=== PATIENT | female | born 1950 | race Two or more races ===

== ENCOUNTER 2019-11-15 22:05 | Inpatient (IN) | payer MEDICARE, MEDICAID ==
[~2019-11-15] VITALS: Ht 162.6 cm; Wt 61.7 kg
[2019-11-15 22:07] VITALS: BP 134/88
[2019-11-15] MEDS ORDERED: Ketorolac 30mg Inj IM ONE (22:45)
--- NOTE | 2019-11-15 23:46 | Diagnostic Imaging Report ---
EXAM: XR Lumbosacral Spine, 2 or 3 Views CLINICAL HISTORY: PAIN TECHNIQUE: Frontal and lateral views of the lumbar spine and sacrum. COMPARISON: No relevant prior studies available. FINDINGS: Limitations: Evaluation in the absence of comparison studies is limited. Vertebrae: Bony structures somewhat difficult to visualize due to overlying structures, osteopenia, and likely patient body habitus. Bilateral posterior probable L4, L5, and S2 stabilization hardware with anterior L5-S1 stabilization and interbody spacer. T12 superior endplate compression fracture of uncertain chronicity, correlate with exam. As this could be acute. Normal alignment. Sacrum/coccyx: Unremarkable as visualized. No acute fracture. Disc spaces: Advanced L2-L3 degenerative disc findings. Soft tissues: Unremarkable. Other findings: Recommend correlation with prior studies to evaluate for stability over time. IMPRESSION: 1. Evaluation in the absence of comparison studies is limited. 2. Bony structures somewhat difficult to visualize due to overlying structures, osteopenia, and likely patient body habitus. 3. Bilateral posterior probable L4, L5, and S2 stabilization hardware with anterior L5-S1 stabilization and interbody spacer. 4. Advanced L2-L3 degenerative disc findings. 5. T12 superior endplate compression fracture of uncertain chronicity, correlate with exam. As this could be acute. 6. Recommend correlation with prior studies to evaluate for stability over time.
[2019-11-16] VITALS (7 sets, daily range): BP systolic 107–139; BP diastolic 48–86
[2019-11-16] MEDS ORDERED: LIDODERM700 M1 TOPIC (00:26)
[2019-11-16] MEDS ORDERED: TYLENOL EXTRA500 MG ORAL (00:26)
[2019-11-16] MEDS ORDERED: Cyclobenzaprine 10mg Tab ORAL ONE (01:00)
--- NOTE | 2019-11-16 01:08 | Emergency Room Report ---
History of Present Illness General Chief Complaint: Back Pain-No Injury Source: Patient Present Illness HPI 69-year-old female presents for back pain. Brought in by EMS from home. States that she has history of slipped disks and sciatica. States that she has had chronic issues with back pain. Has been told that she needs surgery. Is scheduled to see her back surgeon in 2 days. Is taking her medications at home without significant relief. 8 out of 10, dull, radiating down the left leg. Denies any bowel or bladder incontinence. No other aggravating relieving factors. 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: No Patient History Past Medical History: HTN Past Surgical History: none Pertinent Family History: none Social History: Denies: smoking, alcohol use, drug use Last Menstrual Period: n/a Now: No Immunizations: UTD Reviewed Nursing Documentation: PMH: Agreed; PSxH: Agreed Nursing Documentation-PMH Past Medical History: No History, Except For Hx Hypertension: Yes - hypertension Review of Systems All Other Systems: negative except mentioned in HPI Physical Exam Vital Signs Date Time Temp Pulse Resp B/P (MAP) Pulse Ox O2 Delivery O2 Flow Rate FiO2 11/15/19 22:07 97.9 88 18 134/88 (103) 99 Room Air Sp02 EP Interpretation: reviewed, normal General Appearance: no apparent distress, alert, GCS 15, non-toxic Head: normocephalic, atraumatic Eyes: bilateral eye normal inspection, bilateral eye PERRL ENT: hearing grossly normal, normal pharynx, no angioedema, normal voice Neck: full range of motion, supple/symm/no masses Respiratory: chest non-tender, lungs clear, normal breath sounds, speaking full sentences Cardiovascular #1: regular rate, rhythm, no edema Cardiovascular #2: 2+ carotid (R), 2+ carotid (L), 2+ radial (R), 2+ radial (L) , 2+ dorsalis pedis (R), 2+ dorsalis pedis (L) Gastrointestinal: normal bowel sounds, non tender, soft, non-distended, no guarding, no rebound Rectal: deferred Genitourinary: normal inspection, no CVA tenderness, vertebral tenderness Musculoskeletal: back normal, normal range of motion, gait/station normal Neurologic: alert, motor strength/tone normal, oriented x3, sensory intact, responsive, speech normal Psychiatric: judgement/insight normal, memory normal, mood/affect normal, no suicidal/homicidal ideation Reflexes: 3+ bicep (R), 3+ bicep (L), 3+ tricep (R), 3+ tricep (L), 3+ knee (R) , 3+ knee (L) Skin: no rash Lymphatic: no adenopathy Medical Decision Making Diagnostic Impression: Primary Impression: Intractable low back pain ER Course Hospital Course 69-year-old female presents to ED with back pain Differential diagnoses include: fracture, muscle strain, pyelonephritis, kidney stone, Clinical course Patient placed on stretcher. monitoring specialist. After initial history and physical I ordered pain meds, xrays Xray shows hardware intact in lumbar region. ? T12 fx. Patient given multiple rounds of medication but still has pain difficulty walking. History of sciatica and bulging disc. Labs - no leukocytosis, Hb/Hct stable. electrolytes ok. Case discussed with Dr. Bronson and he agreed to accept the patient to his service for further care and support I feel this is a highly complex case requiring extensive working including EKG/ Rhythm strip, Xray/CT/US, Blood/urine lab work, repeat exams while in ED, and administration of strong opiates/narcotics for pain control, admission to hospital or close patient follow up. Diagnosis -intractable back pain Patient admitted to floor in serious condition Laboratory Tests Test 11/16/19 03:23 White Blood Count 6.0 K/UL (4.8-10.8) Red Blood Count 4.17 M/UL (4.20-5.40) L Hemoglobin 13.6 G/DL (12.0-16.0) Hematocrit 40.9 % (37.0-47.0) Mean Corpuscular Volume 98 FL (80-99) Mean Corpuscular Hemoglobin 32.7 PG (27.0-31.0) H Mean Corpuscular Hemoglobin Concent 33.3 G/DL (32.0-36.0) Red Cell Distribution Width 12.4 % (11.6-14.8) Platelet Count 201 K/UL (150-450) Mean Platelet Volume 9.9 FL (6.5-10.1) Neutrophils (%) (Auto) 43.3 % (45.0-75.0) L Lymphocytes (%) (Auto) 46.0 % (20.0-45.0) H Monocytes (%) (Auto) 6.2 % (1.0-10.0) Eosinophils (%) (Auto) 3.3 % (0.0-3.0) H Basophils (%) (Auto) 1.3 % (0.0-2.0) Sodium Level 144 MMOL/L (136-145) Potassium Level 3.4 MMOL/L (3.5-5.1) L Chloride Level 106 MMOL/L (98-107) Carbon Dioxide Level 32 MMOL/L (21-32) Anion Gap 6 mmol/L (5-15) Blood Urea Nitrogen 15 mg/dL (7-18) Creatinine 0.8 MG/DL (0.55-1.30) Estimat Glomerular Filtration Rate > 60 mL/min (>60) Glucose Level 95 MG/DL (74-106) Calcium Level 9.3 MG/DL (8.5-10.1) Total Bilirubin 0.3 MG/DL (0.2-1.0) Aspartate Amino Transf (AST/SGOT) 19 U/L (15-37) Alanine Aminotransferase (ALT/SGPT) 22 U/L (12-78) Alkaline Phosphatase 59 U/L (46-116) Total Protein 6.9 G/DL (6.4-8.2) Albumin 3.8 G/DL (3.4-5.0) Globulin 3.1 g/dL Albumin/Globulin Ratio 1.2 (1.0-2.7) Other X-Ray Diagnostic Results Other X-Ray Diagnostic Results : X-Ray ordered: L spine # of Views/Limited Vs Complete: 3 View Indication: Pain EP Interpretation: Yes Interpretation: no dislocation, no soft tissue swelling, other - hardware in lumbar region intact. wedge compression T12 undetermined acuity Impression: No acute disease Electronically Signed by: Electronically signed by Ugo Morales MD Last Vital Signs Date Time Temp Pulse Resp B/P (MAP) Pulse Ox O2 Delivery O2 Flow Rate FiO2 11/15/19 23:40 97.9 11/15/19 22:07 88 18 134/88 (103) 99 Room Air Status: improved Disposition: HOME, SELF-CARE Condition: Stable Scripts Acetaminophen* (TYLENOL EXTRA STRENGTH*) 500 Mg Tablet 500 MG ORAL Q8H PRN for Prn Headache/Temp > 101, #30 TAB 0 Refills Prov: Ugo Morales MD 11/16/19 Lidocaine Patch* (Lidoderm Patch*) 1 Each Adh..patch 1 PATCH TOPIC DAILY, #7 PATCH 0 Refills Patch(es) may remain in place for up to 12 hours in any 24-hour period. Prov: Ugo Morales MD 11/16/19 Referrals: NON PHYSICIAN (PCP) Patient Instructions: Ugo Fernandez MD Nov 16, 2019 01:08
[2019-11-16] MEDS ORDERED: Morphine Sulfate 4mg/ml Inj (IV USE ONLY) IVP ONE (02:45)
[2019-11-16 03:32] LABS: BASOPHILS % (AUTO) 1.3 % (0.0-2.0); EOSINOPHILS % (AUTO) 3.3 % (0.0-3.0); HEMATOCRIT 40.9 % (37.0-47.0); HEMOGLOBIN 13.6 G/DL (12.0-16.0); MEAN CORPUSCULAR VOLUME 98 FL (80-99); MONOCYTES % (AUTO) 6.2 % (1.0-10.0); NEUTROPHILS % (AUTO) 43.3 % (45.0-75.0); PLATELET COUNT 201 K/UL (150-450); RED BLOOD COUNT 4.17 M/UL (4.20-5.40); RED CELL DISTRIBUTION WIDTH 12.4 % (11.6-14.8)
[2019-11-16 03:42] LABS: ANION GAP 6 mmol/L (5-15); BLOOD UREA NITROGEN 15 mg/dL (7-18); CALCIUM 9.3 MG/DL (8.5-10.1); CARBON DIOXIDE 32 MMOL/L (21-32); CHLORIDE 106 MMOL/L (98-107); CREATININE 0.8 MG/DL (0.55-1.30); POTASSIUM 3.4 MMOL/L (3.5-5.1); SODIUM 144 MMOL/L (136-145)
[2019-11-16 03:46] LABS: ALANINE AMINOTRANSFERASE 22 U/L (12-78); ALBUMIN 3.8 G/DL (3.4-5.0); ALBUMIN/GLOBULIN RATIO 1.2 (1.0-2.7); ALKALINE PHOSPHATASE 59 U/L (46-116); ASPARTATE AMINO TRANSFERASE 19 U/L (15-37); BILIRUBIN,TOTAL 0.3 MG/DL (0.2-1.0)
[2019-11-16] MEDS ORDERED: DEPAKOTE250 MG PO (04:43)
[2019-11-16] MEDS ORDERED: LOTENSIN20 MG ORAL (04:43)
[2019-11-16] MEDS ORDERED: GABAPENTIN400 MG ORAL ×2 (04:43→06:28)
[2019-11-16] MEDS ORDERED: METHOCARBAMOL750 MG ORAL (04:43)
[2019-11-16] MEDS ORDERED: DICLOFEN 3%-HYA30 GM TP (04:44)
[2019-11-16] MEDS ORDERED: SYSTANE NIGHTT3.5 GM OP (04:44)
[2019-11-16] MEDS ORDERED: HYDROCHLOROTHIA25 MG ORAL (04:49)
[2019-11-16] MEDS ORDERED: Morphine Sulfate 2mg/ml Inj(IV/IM USE ONLY) IVP PRN (06:15)
[2019-11-16] MEDS ORDERED: OMEPRAZOLE20 M2 ORAL ×3 (06:24→07:34)
[2019-11-16] MEDS ORDERED: IBUPROFEN600 M1 ORAL (06:28)
[2019-11-16] MEDS ORDERED: DIVALPROEX SOD250 MG PO (06:28)
[2019-11-16] MEDS ORDERED: HYDROXYCHLOROQ200 M1 PO ×3 (06:28→07:34)
[2019-11-16] MEDS ORDERED: Acetaminophen 500mg (ES) tab ORAL PRN (06:45)
[2019-11-16] MEDS ORDERED: Methocarbamol 750mg tab ORAL PRN (06:45)
[2019-11-16] MEDS ORDERED: DIVALPROEX SOD500 MG PO ×2 (07:00→07:34)
[2019-11-16] MEDS ORDERED: GABAPENTIN100 MG ORAL ×2 (07:02→07:34)
[2019-11-16] MEDS ORDERED: Diclofenac 1% Gel 100gm TOPIC SCH (09:00)
[2019-11-16] MEDS: Diclofenac 1% Gel 100gm TOPIC SCH ×4 (10:41→20:37)
[2019-11-16] MEDS: Morphine Sulfate 4mg/ml Inj (IV USE ONLY) IVP PRN ×3 (11:36→21:41)
[2019-11-16] MEDS: Depakote 500mg tab ORAL SCH (16:41)
--- NOTE | 2019-11-16 17:52 | Consultation ---
History of Present Illness General Date patient seen: Nov 16, 2019 Chief Complaint: Present Illness Allergies: Coded Allergies: No Known Allergies (Unverified , 11/15/19) Medication History Scheduled Benazepril Hcl* (Lotensin*), 20 MG ORAL DAILY, (Reported) Divalproex Sodium (Divalproex Sodium), 1,000 MG PO BEFORE DINNER, (Reported) Gabapentin* (Gabapentin*), 300 MG ORAL THREE TIMES A DAY, (Reported) Hydroxychloroquine Sulfate (Hydroxychloroquine Sulfate), 200 MG PO DAILY, ( Reported) Omeprazole (Omeprazole), 20 MG ORAL DAILY, (Reported) Scheduled PRN Acetaminophen* (Tylenol Extra Strength*), 500 MG ORAL Q8H PRN for Prn Headache/ Temp > 101 Ibuprofen* (Motrin*), 600 MG ORAL Q6H PRN for For Pain, (Reported) Methocarbamol* (Methocarbamol*), 750 MG ORAL THREE TIMES A DAY PRN for For Pain, (Reported) Discontinued Medications Diclofenac/Hyaluronate/Niacin (Diclofen 3%-Hyaluron 2%-Niac4%), 30 GM TP, ( Reported) Discontinued Reason: MD discontinued med Divalproex Sodium (Divalproex Sodium), 250 MG PO BEFORE DINNER PRN for For Anxiety, (Reported) Discontinued Reason: MD discontinued med Divalproex Sodium (Divalproex Sodium), 500 MG PO DAILY PRN for Agitation, ( Reported) Discontinued Reason: MD discontinued med Divalproex Sodium* (Depakote*), 500 MG PO DAILY, (Reported) Discontinued Reason: MD discontinued med Gabapentin* (Gabapentin*), 60 MG ORAL TWICE A DAY, (Reported) Discontinued Reason: Medication dose changed Gabapentin* (Gabapentin*), 300 MG ORAL THREE TIMES A DAY PRN for Muscle Spasm, ( Reported) Discontinued Reason: Medication dose changed Gabapentin* (Gabapentin*), 300 MG ORAL THREE TIMES A DAY PRN for Muscle Spasm, ( Reported) Discontinued Reason: MD discontinued med Hydrochlorothiazide* (Hydrochlorothiazide*), 20 MG ORAL DAILY, (Reported) Discontinued Reason: Pt stopped taking med Hydroxychloroquine Sulfate (Hydroxychloroquine Sulfate), 200 MG PO BID PRN for For Pain, (Reported) Discontinued Reason: MD discontinued med Hydroxychloroquine Sulfate (Hydroxychloroquine Sulfate), 200 MG PO BID PRN for For Pain, (Reported) Discontinued Reason: MD discontinued med Lidocaine Patch* (Lidoderm Patch*), 1 PATCH TOPIC DAILY Discontinued Reason: Pt stopped taking med Mineral Oil/Petrolatum,White (Systane Nighttime Eye Oint), 3.5 GM OP, (Reported) Discontinued Reason: Pt stopped taking med Omeprazole (Omeprazole), 20 MG ORAL DAILY PRN for Abdominal cramps, (Reported) Discontinued Reason: Therapy completed Omeprazole (Omeprazole), 20 MG ORAL DAILY PRN for Abdominal cramps, (Reported) Discontinued Reason: MD discontinued med Patient History Healthcare decision maker Resuscitation status Advanced Directive on File Physical Exam Last 24 Hour Vital Signs Date Time Temp Pulse Resp B/P (MAP) Pulse Ox O2 Delivery O2 Flow Rate FiO2 11/16/19 12:00 98.2 64 19 138/74 (95) 98 11/16/19 09:00 Room Air 11/16/19 08:00 96.9 61 18 129/56 (80) 98 11/16/19 04:54 Room Air 11/16/19 04:45 97.9 85 16 136/84 99 Room Air 11/16/19 04:04 97.9 87 16 139/86 99 Room Air 11/16/19 03:18 97.9 11/16/19 02:10 97.9 82 16 132/81 99 Room Air 11/16/19 00:12 97.9 82 16 136/79 99 Room Air 11/15/19 23:40 97.9 11/15/19 22:07 97.9 88 18 134/88 99 Room Air 11/15/19 22:07 97.9 88 18 134/88 (103) 99 Room Air Intake and Output 11/15/19 11/16/19 19:00 07:00 Intake Total 100 ml Balance 100 ml Intake Oral 100 ml Laboratory Tests Test 11/16/19 03:23 White Blood Count 6.0 K/UL (4.8-10.8) Red Blood Count 4.17 M/UL (4.20-5.40) L Hemoglobin 13.6 G/DL (12.0-16.0) Hematocrit 40.9 % (37.0-47.0) Mean Corpuscular Volume 98 FL (80-99) Mean Corpuscular Hemoglobin 32.7 PG (27.0-31.0) H Mean Corpuscular Hemoglobin Concent 33.3 G/DL (32.0-36.0) Red Cell Distribution Width 12.4 % (11.6-14.8) Platelet Count 201 K/UL (150-450) Mean Platelet Volume 9.9 FL (6.5-10.1) Neutrophils (%) (Auto) 43.3 % (45.0-75.0) L Lymphocytes (%) (Auto) 46.0 % (20.0-45.0) H Monocytes (%) (Auto) 6.2 % (1.0-10.0) Eosinophils (%) (Auto) 3.3 % (0.0-3.0) H Basophils (%) (Auto) 1.3 % (0.0-2.0) Sodium Level 144 MMOL/L (136-145) Potassium Level 3.4 MMOL/L (3.5-5.1) L Chloride Level 106 MMOL/L (98-107) Carbon Dioxide Level 32 MMOL/L (21-32) Anion Gap 6 mmol/L (5-15) Blood Urea Nitrogen 15 mg/dL (7-18) Creatinine 0.8 MG/DL (0.55-1.30) Estimat Glomerular Filtration Rate > 60 mL/min (>60) Glucose Level 95 MG/DL (74-106) Calcium Level 9.3 MG/DL (8.5-10.1) Total Bilirubin 0.3 MG/DL (0.2-1.0) Aspartate Amino Transf (AST/SGOT) 19 U/L (15-37) Alanine Aminotransferase (ALT/SGPT) 22 U/L (12-78) Alkaline Phosphatase 59 U/L (46-116) Total Protein 6.9 G/DL (6.4-8.2) Albumin 3.8 G/DL (3.4-5.0) Globulin 3.1 g/dL Albumin/Globulin Ratio 1.2 (1.0-2.7) Height (Feet): 5 Height (Inches): 4.00 Weight (Pounds): 136 Medications Current Medications Medications (Trade) Dose Ordered Sig/Jero Route PRN Reason Start Time Stop Time Status Last Admin Dose Admin Acetaminophen (Tylenol) 500 mg Q8H PRN ORAL PRNH/TEMP 11/16/19 06:45 12/16/19 06:44 Acetaminophen (Tylenol) 650 mg Q4H PRN ORAL For Pain 11/16/19 06:15 12/16/19 06:14 Al Hydroxide/Mg Hydroxide (Mylanta) 30 ml Q4H PRN ORAL Abdominal cramps 11/16/19 06:15 12/16/19 06:14 Diclofenac Sodium (Voltaren gel) 1 applic QID TOPIC 11/16/19 09:00 02/14/20 08:59 11/16/19 12:27 Divalproex Sodium (Depakote) 1,000 mg BEFORE DINNER ORAL 11/16/19 16:30 12/16/19 16:29 11/16/19 16:41 Gabapentin (Neurontin) 300 mg TID ORAL 11/16/19 09:00 12/16/19 08:59 11/16/19 12:27 Hydroxychloroquine Sulfate (Plaquenil) 200 mg DAILY ORAL 11/16/19 09:00 12/16/19 08:59 11/16/19 11:33 Methocarbamol (Robaxin) 750 mg TIDPRN PRN ORAL muscle spasm 11/16/19 06:45 12/16/19 06:44 11/16/19 10:07 Morphine Sulfate (Morphine Sulfate) 2 mg Q4H PRN IVP mild pain 11/16/19 06:15 11/23/19 06:14 Morphine Sulfate (Morphine Sulfate) 4 mg Q3H PRN IVP Severe Pain (Pain Scale 7-10) 11/16/19 06:15 11/23/19 06:14 11/16/19 14:50 Pantoprazole (Protonix) 40 mg DAILY ORAL 11/16/19 09:00 12/16/19 08:59 11/16/19 08:56 Assessment/Plan Assessment/Plan: (1) Lumbar DDD (2) Lumbar Spondylosis (3) Lumbar Radiculopathy (4) Muscle spasm seen dictated Ramón Smith Nov 16, 2019 17:52
[2019-11-16] MEDS ORDERED: Methocarbamol 500mg tab ORAL PRN (18:00)
[2019-11-16] MEDS ORDERED: LORazepam Inj 2mg/ml 1ml IV PRN (18:00)
[2019-11-16] MEDS ORDERED: Gadavist 7.5mMol/7.5ml vial IV PRN (18:00)
[2019-11-16] MEDS: Methocarbamol 500mg tab ORAL PRN (18:20)
--- NOTE | 2019-11-16 19:15 | Consultation ---
DATE OF CONSULTATION: 11/16/2019 PAIN MANAGEMENT CONSULTATION CONSULTING PHYSICIAN: Zafar Goldstein M.D. REFERRING PHYSICIAN: Be Bronson M.D. PHYSICIAN BRANCH SERVICE REPRESENTATIVE: Efra Prado CHIEF COMPLAINT: Low back pain. HISTORY OF PRESENT ILLNESS: This is a 69-year-old female who has been seen on the Med/Surg floor of [facility] for initial pain management consultation. The patient has been admitted under the care of Dr. Bronson due to complaints of lower back pain. She states she has been having low back pain for 5 years. It is constant and chronic pain, rating as 8/10. Describing pain as a sharp, shooting burning pain, radiating into her left lower extremity, increased with movement and reduced with medication. It looks like she takes Tylenol as needed at home, Robaxin 750 mg tablet three times a day, Neurontin 100 mg three times a day. She has history of rheumatoid arthritis, had surgery on her lower back which was effusion however had no updated MRI and has been complaining of increased falls at home. Due to this, we were consulted so that the patient would have adequate pain control while here in the hospital. She is also on morphine 2 mg IV every 2 hours as needed for moderate pain and morphine 4 mg IV every 3 hours as needed for severe pain. Morphine has been relieving her pain to tolerable level. PAST MEDICAL HISTORY: Hypertension. PAST SURGICAL HISTORY: Brain tumor removal twice, lumbar fusion. SOCIAL HISTORY: Denies smoking tobacco, drinking alcohol, or drug abuse. ALLERGIES: No known drug allergies. MEDICATIONS: Lotensin, divalproex, gabapentin, omeprazole, Tylenol, Motrin, Robaxin. REVIEW OF SYSTEMS: Denies rash, fever, chills, sweating, dizziness, drowsiness, blurred vision, sore throat, or change in weight. No shortness of breath or chest pain. No nausea, vomiting, diarrhea, blood in the stool or urine. No dysuria. PHYSICAL EXAMINATION: GENERAL: Alert, awake, and oriented. VITAL SIGNS: Blood pressure 128/74, heart rate 64, temperature 98 degrees Fahrenheit. HEENT: PERRLA. NECK: Range of motion is full in all directions. No tenderness to paracervical muscles. No adenopathy. LUNGS: Decreased breath sounds bilaterally. HEART: S1 and S2 regular. ABDOMEN: Soft and nontender. BACK: Range of motion is decreased in flexion and extension with surgical scar noted on the lumbar spine. EXTREMITIES: Upper and lower extremity range of motion is decreased due to the patient's condition. No cyanosis. No clubbing. Sensory is reduced. Reflexes are not obtainable. No adenopathy. ASSESSMENT AND PLAN: This is a 69-year-old female with lumbar degenerative disk disease, lumbar spondylosis, lumbar radiculopathy, muscle spasm. The patient will be continued on morphine as needed. Gabapentin will be increased to 900 mg tablet three times a day. We will continue the Robaxin every 8 hour as needed for muscle spasm. Order an MRI of the lumbar spine with and without contrast to rule out further pathology in the lower back as well as one time dose of Ativan 1 mg IV prior to MRI. The patient was discussed with Dr. Goldstein and Dr. Goldstein concurred. We will follow the patient. Thank you very much for the courtesy of this consultation. Zafar Goldstein M.D. NAY Prado DR: Rani JOB#: [id number] CC: [email or web address]
--- NOTE | 2019-11-16 21:15 | History and Physical Report ---
DATE OF ADMISSION: 11/16/2019 REASON FOR : Intractable pain. HISTORY OF PRESENT ILLNESS: The patient is a 69-year-old female with long-standing history of back pain. The patient does have pain management at home. The patient apparently has history of significant disk disease and sciatica. The patient has had chronic pain issues as mentioned. The patient was told that she needs surgical intervention The patient is scheduled to see a surgeon this week. The patient is taking medication for pain, but notes no relief. The patient's care discussed and reviewed. The patient is now admitted for pain relief and pain management. PAST MEDICAL HISTORY: Notable for hypertension, lumbar disk disease, and opiate dependence. MEDICATIONS: Reviewed. ALLERGIES: Reviewed. SOCIAL HISTORY: Nonsmoker and nondrinker at present. The patient is unemployed. REVIEW OF SYSTEMS: All 10 points reviewed and otherwise negative. PHYSICAL EXAMINATION: GENERAL: A well-developed female, overall comfortable. HEENT: Negative. Extraocular movements are grossly intact. NECK: Supple. LUNGS: Fairly clear and symmetric. No rhonchi or wheezes. CARDIAC: S1 and S2. Regular rate and rhythm. ABDOMEN: Soft, nontender, nondistended. EXTREMITIES: No cyanosis or clubbing. NEUROLOGICAL: With nonfocal symptoms, but significant pain with range of motion. LABORATORY DATA: All reviewed. IMPRESSION: 1. Intractable pain. 2. Lumbar disk disease per history. 3. Lumbar radiculopathy. 4. Opiate dependence. RECOMMENDATIONS: Supportive care. IV morphine. Pain management evaluation. Monitor clinically for changes. MRI of the lumbosacral spine. and discharge planning once improved and stable. Be Bronson M.D. DR: FRANCISCO JOB#: [id number] CC:
[2019-11-17] VITALS: BP 121/59
[2019-11-17] MEDS: Methocarbamol 500mg tab ORAL PRN (03:28)
[2019-11-17 04:00] VITALS: BP 109/62
[2019-11-17] MEDS: Morphine Sulfate 4mg/ml Inj (IV USE ONLY) IVP PRN (07:39)
[2019-11-17 08:00] VITALS: BP 154/74
--- NOTE | 2019-11-17 08:43 | General Progress Note ---
Assessment/Plan Assessment/Plan: IMPRESSION: 1. Intractable pain. 2. Lumbar disk disease per history. 3. Lumbar radiculopathy. PLAN pain management and RX MRI if able dc planning d/w patient as to follow up care impression, plan, and exam edited and reviewed in detail care discussed with RN Subjective Allergies: Coded Allergies: No Known Allergies (Unverified , 11/15/19) Subjective care noted and reviewed Objective Last 24 Hour Vital Signs Date Time Temp Pulse Resp B/P (MAP) Pulse Ox O2 Delivery O2 Flow Rate FiO2 11/17/19 08:00 96.8 60 20 154/74 (100) 93 11/17/19 04:00 97.0 60 18 109/62 (78) 95 11/17/19 00:00 98.2 61 18 121/59 (79) 95 11/16/19 21:00 Room Air 11/16/19 20:00 97.0 61 18 107/48 (67) 96 11/16/19 16:00 98.1 60 20 117/61 (79) 97 11/16/19 12:00 98.2 64 19 138/74 (95) 98 11/16/19 09:00 Room Air Intake and Output 11/16/19 11/17/19 19:00 07:00 Intake Total 360 ml 360 ml Balance 360 ml 360 ml Intake Oral 360 ml Other 360 ml # Voids 1 1 Height (Feet): 5 Height (Inches): 4.00 Weight (Pounds): 136 Objective GENERAL: A well-developed female, overall comfortable. HEENT: Negative. Extraocular movements are grossly intact. NECK: Supple. LUNGS: Fairly clear and symmetric. No rhonchi or wheezes. CARDIAC: S1 and S2. Regular rate and rhythm. ABDOMEN: Soft, nontender, nondistended. EXTREMITIES: No cyanosis or clubbing. NEUROLOGICAL: With nonfocal symptoms, but significant pain with range of motion. Be Bronson MD Nov 17, 2019 08:43
[2019-11-17] MEDS ORDERED: Naloxone 0.4mg/ml Inj IVP PRN (08:45)
[2019-11-17] MEDS ORDERED: HYDROmorphone 1mg/ml Carpuject IVP PRN (08:45)
[2019-11-17] MEDS: Diclofenac 1% Gel 100gm TOPIC SCH ×4 (08:52→21:05)
--- NOTE | 2019-11-17 08:53 | General Progress Note ---
Assessment/Plan Assessment/Plan: (1) Lumbar DDD (2) Lumbar Spondylosis (3) Lumbar Radiculopathy (4) Muscle spasm We will discontinue Morphine and Robaxin We will start Dilaudid 1mg IV Q6H PRN severe breakthrough pain, Dilaudid 0.5mg IV Q4H PRN severe pain [place] 10/325mg PO 1 tab Q4H PRN mod pain and Baclofen 10mg PO 1 tab Q8H PRN muscle spasm. Parameters set to hold opioids for oversedation or lethargy or sbp<90 or dbp<60 or rr<12 or o2sat<92%. MRI pending to be performed. D/w Dr. Goldstein and he concurred. Subjective Date patient seen: Nov 17, 2019 Time patient seen: 08:45 - am Allergies: Coded Allergies: No Known Allergies (Unverified , 11/15/19) Subjective REVIEW OF SYSTEMS: Denies rash, fever, chills, sweating, dizziness, drowsiness, blurred vision, sore throat, or change in weight. No shortness of breath or chest pain. No nausea, vomiting, diarrhea, blood in the stool or urine. No dysuria. SUBJECTIVE: Patient continues to c/o severe pain with minimal relief on the morphine explaining that the 4mg dose only lasts for about 2 hours. Having muscle spasm at this time not relieved on the Robaxin. Planning for MRI this morning. Reports that her spine surgeon is Dr. Merrick Landry, who works out of [facility]. Objective Last 24 Hour Vital Signs Date Time Temp Pulse Resp B/P (MAP) Pulse Ox O2 Delivery O2 Flow Rate FiO2 11/17/19 08:00 96.8 60 20 154/74 (100) 93 11/17/19 04:00 97.0 60 18 109/62 (78) 95 11/17/19 00:00 98.2 61 18 121/59 (79) 95 11/16/19 21:00 Room Air 11/16/19 20:00 97.0 61 18 107/48 (67) 96 11/16/19 16:00 98.1 60 20 117/61 (79) 97 11/16/19 12:00 98.2 64 19 138/74 (95) 98 11/16/19 09:00 Room Air Intake and Output 11/16/19 11/17/19 19:00 07:00 Intake Total 360 ml 360 ml Balance 360 ml 360 ml Intake Oral 360 ml Other 360 ml # Voids 1 1 Height (Feet): 5 Height (Inches): 4.00 Weight (Pounds): 136 Objective GENERAL: Alert, awake, and oriented. LUNGS: Decreased breath sounds bilaterally. HEART: S1 and S2 regular. ABDOMEN: Soft and nontender. EXTREMITIES: No cyanosis. No clubbing. NEURO: No changes. Ramón Smith Nov 17, 2019 08:53
[2019-11-17] MEDS ORDERED: Hydromorphone 0.5mg/0.5ml inj IVP PRN (09:15)
[2019-11-17] MEDS: HYDROmorphone 1mg/ml Carpuject IVP PRN ×3 (10:22→20:04)
[2019-11-17 12:00] VITALS: BP 122/72
--- NOTE | 2019-11-17 14:49 | Diagnostic Imaging Report ---
EXAM: MRI MRI L Spine w/wo Contrast HISTORY: Back pain. History of lumbar fusion. COMPARISON: Lumbar x-rays 11/15/2019 TECHNIQUE: MR scanning of the lumbar spine includes sagittal T1, T2 and axial T1 and T2 sequences. After administration of intravenous gadolinium, additional sagittal and axial T1 images with fat suppression obtained. FINDINGS: Unfortunately the study is extremely limited. Motion artifacts noted on the axial sequences. Patient has fixation hardware spanning the lumbosacral junction. The severe metal artifacts obscure much of the underlying anatomy. Posterior pedicle screws identified spanning the L4-S2 levels. There also appears to be anterior fusion hardware spanning the L5-S1 level as well as interbody fusion prosthesis at L5-S1. Overall alignment of the lumbar spine is grossly anatomic. There is slight depression of the superior endplate of L1 which appears old. The L2 and L3 vertebral bodies are grossly intact to the extent visualized. No acute paraspinal soft tissue abnormality seen. L1-L2: There is minimal annular bulging between 1 to 2 mm with slight thecal sac indentation only. L2-L3: Broad bulging estimated at 3 mm centrally. Eccentric disc disease up to 6 to 7 mm. There is also severe facet hypertrophy and ligamentum flavum thickening. There appears to be moderate to severe spinal canal stenosis at this level along with severe bilateral foraminal stenosis. L3-L4: Visualization of the disc space is limited with adjacent metal artifact. There appears to be bilateral facet hypertrophy. Anterior bulging estimated at 4 mm. There is mild spinal stenosis with AP diameter estimated at 8 mm. The neural foramens are not adequately visualized. The L4-5 and L5-S1 levels are not adequately visualized postcontrast images are also extremely limited and did not add any additional information. IMPRESSION: Studies extremely limited due to some respiratory motion artifacts and also severe metal artifact from the fixation hardware in the mid to lower lumbar spine. Overall alignment is grossly anatomic. There appears to be some degenerative disc and facet disease in the upper to mid lumbar spine with spinal stenosis at L2-3 and L3-4. Neural foraminal stenoses also demonstrated. Unfortunately, very poor delineation of the lower lumbar spine and lumbosacral junction due to metal artifact. Images through this area are essentially nondiagnostic.
[2019-11-17 16:00] VITALS: BP 158/86
[2019-11-17] MEDS: Depakote 500mg tab ORAL SCH (17:05)
[2019-11-17 20:00] VITALS: BP 130/72
[2019-11-18] VITALS: BP 108/64
[2019-11-18] MEDS: HYDROcodone/Acetamin 10/325 tab ORAL PRN ×3 (01:01→09:21)
[2019-11-18 04:00] VITALS: BP 148/74
[2019-11-18 08:00] VITALS: BP 191/94
[2019-11-18] MEDS: Diclofenac 1% Gel 100gm TOPIC SCH ×2 (09:19→12:11)
--- NOTE | 2019-11-18 09:21 | General Progress Note ---
Assessment/Plan Assessment/Plan: IMPRESSION: 1. Intractable pain. 2. Lumbar disk disease per history. 3. Lumbar radiculopathy. PLAN pain management and RX she does not want HH she will follow up with her surgeon for her back pain MRI noted d/w patient as to follow up care impression, plan, and exam edited and reviewed in detail care discussed with RN Subjective Allergies: Coded Allergies: No Known Allergies (Unverified , 11/15/19) Subjective care noted and reviewed MRI reviewed pain noted Objective Last 24 Hour Vital Signs Date Time Temp Pulse Resp B/P (MAP) Pulse Ox O2 Delivery O2 Flow Rate FiO2 11/18/19 08:00 97.6 73 18 191/94 (126) 95 11/18/19 05:47 98.2 11/18/19 04:00 97.5 65 18 148/74 (98) 96 11/18/19 00:00 98.1 64 16 108/64 (79) 96 11/17/19 21:00 Room Air 11/17/19 20:54 98.1 11/17/19 20:00 98.1 65 18 130/72 (91) 94 11/17/19 16:00 98.1 75 18 158/86 (110) 97 11/17/19 12:00 98.1 60 18 122/72 (89) 95 Intake and Output 11/17/19 11/18/19 18:59 06:59 Intake Total 600 ml Balance 600 ml Intake Oral 600 ml # Voids 2 3 Height (Feet): 5 Height (Inches): 4.00 Weight (Pounds): 0 Objective GENERAL: A well-developed female, overall comfortable. HEENT: Negative. Extraocular movements are grossly intact. NECK: Supple. LUNGS: Fairly clear and symmetric. No rhonchi or wheezes. CARDIAC: S1 and S2. Regular rate and rhythm. ABDOMEN: Soft, nontender, nondistended. EXTREMITIES: No cyanosis or clubbing. NEUROLOGICAL: With nonfocal symptoms, but significant pain with range of motion. Be Bronson MD Nov 18, 2019 09:21
--- NOTE | 2019-11-18 09:43 | General Progress Note ---
Assessment/Plan Assessment/Plan: (1) Lumbar DDD (2) Lumbar Spondylosis (3) Lumbar Radiculopathy (4) Muscle spasm We will continue Dilaudid, [place] and Baclofen An Rx for [place] 10/325mg and Narcan was written for patient in anticipation for discharge. D/w Dr. Goldstein and he concurred. Subjective Date patient seen: Nov 18, 2019 Time patient seen: 09:15 - am Allergies: Coded Allergies: No Known Allergies (Unverified , 11/15/19) Subjective REVIEW OF SYSTEMS: Denies rash, fever, chills, sweating, dizziness, drowsiness, blurred vision, sore throat, or change in weight. No shortness of breath or chest pain. No nausea, vomiting, diarrhea, blood in the stool or urine. No dysuria. SUBJECTIVE: Patient is in bed and reports pain has been better tolerated. MRI was reviewed with patient and she was advised to f/u with surgeon when discharged. She seems to understand. Objective Last 24 Hour Vital Signs Date Time Temp Pulse Resp B/P (MAP) Pulse Ox O2 Delivery O2 Flow Rate FiO2 11/18/19 09:20 191/94 11/18/19 08:00 97.6 73 18 191/94 (126) 95 11/18/19 05:47 98.2 11/18/19 04:00 97.5 65 18 148/74 (98) 96 11/18/19 00:00 98.1 64 16 108/64 (79) 96 11/17/19 21:00 Room Air 11/17/19 20:54 98.1 11/17/19 20:00 98.1 65 18 130/72 (91) 94 11/17/19 16:00 98.1 75 18 158/86 (110) 97 11/17/19 12:00 98.1 60 18 122/72 (89) 95 Intake and Output 11/17/19 11/18/19 19:00 07:00 Intake Total 600 ml Balance 600 ml Intake Oral 600 ml # Voids 2 3 Height (Feet): 5 Height (Inches): 4.00 Weight (Pounds): 0 Objective GENERAL: Alert, awake, and oriented. LUNGS: Decreased breath sounds bilaterally. HEART: S1 and S2 regular. ABDOMEN: Soft and nontender. EXTREMITIES: No cyanosis. No clubbing. NEURO: No changes. Procedure: MRI L Spine w/wo Contrast EXAM: MRI MRI L Spine w/wo Contrast HISTORY: Back pain. History of lumbar fusion. COMPARISON: Lumbar x-rays 11/15/2019 TECHNIQUE: MR scanning of the lumbar spine includes sagittal T1, T2 and axial T1 and T2 sequences. After administration of intravenous gadolinium, additional sagittal and axial T1 images with fat suppression obtained. FINDINGS: Unfortunately the study is extremely limited. Motion artifacts noted on the axial sequences. Patient has fixation hardware spanning the lumbosacral junction. The severe metal artifacts obscure much of the underlying anatomy. Posterior pedicle screws identified spanning the L4-S2 levels. There also appears to be anterior fusion hardware spanning the L5-S1 level as well as interbody fusion prosthesis at L5- S1. Overall alignment of the lumbar spine is grossly anatomic. There is slight depression of the superior endplate of L1 which appears old. The L2 and L3 vertebral bodies are grossly intact to the extent visualized. No acute paraspinal soft tissue abnormality seen. L1-L2: There is minimal annular bulging between 1 to 2 mm with slight thecal sac indentation only. L2-L3: Broad bulging estimated at 3 mm centrally. Eccentric disc disease up to 6 to 7 mm. There is also severe facet hypertrophy and ligamentum flavum thickening. There appears to be moderate to severe spinal canal stenosis at this level along with severe bilateral foraminal stenosis. L3-L4: Visualization of the disc space is limited with adjacent metal artifact. There appears to be bilateral facet hypertrophy. Anterior bulging estimated at 4 mm. There is mild spinal stenosis with AP diameter estimated at 8 mm. The neural foramens are not adequately visualized. The L4-5 and L5-S1 levels are not adequately visualized postcontrast images are also extremely limited and did not add any additional information. IMPRESSION: Studies extremely limited due to some respiratory motion artifacts and also severe metal artifact from the fixation hardware in the mid to lower lumbar spine. Overall alignment is grossly anatomic. There appears to be some degenerative disc and facet disease in the upper to mid lumbar spine with spinal stenosis at L2-3 and L3-4. Neural foraminal stenoses also demonstrated. Unfortunately, very poor delineation of the lower lumbar spine and lumbosacral junction due to metal artifact. Images through this area are essentially nondiagnostic. Ramón Smith Nov 18, 2019 09:43
[2019-11-18] MEDS ORDERED: NORCO 10-325 T1 EACH ORAL (09:46)
[2019-11-18 12:00] VITALS: BP 164/78
[2019-11-18] MEDS ORDERED: Hydromorphone 0.5mg/0.5ml inj IVP PRN (13:45)
[2019-11-18] MEDS ORDERED: Gadavist 7.5mMol/7.5ml vial IV PRN (13:45)
[2019-11-18] MEDS ORDERED: LORazepam Inj 2mg/ml 1ml IV PRN (13:45)
[2019-11-18] MEDS ORDERED: Acetaminophen 500mg (ES) tab ORAL PRN (13:45)
[2019-11-18] MEDS ORDERED: HYDROcodone/Acetamin 10/325 tab ORAL PRN (14:00)
[2019-11-18 16:00] VITALS: BP 120/74
[2019-11-18] MEDS ORDERED: Depakote 500mg tab ORAL SCH (16:30)
[2019-11-18] MEDS ORDERED: Diclofenac 1% Gel 100gm TOPIC SCH (18:00)
--- NOTE | 2019-11-19 16:24 | Discharge Summary ---
Discharge Summary Discharge Summary _ DATE OF ADMISSION: 11/16/2019 DATE OF DISCHARGE: 11/18/2019 DISCHARGED BY: Dr. Bronson REASON FOR ADMISSION: [] 69 years old female with past medical history of hypertension, rheumatoid arthritis, was brought by paramedics from home due to significant back pain. Patient reported history of slipped disc and sciatica. Patient was told that she needs a surgery. Patient is scheduled was scheduled to see her orthopedic surgeon in 2 weeks. She was taking her analgesic at home without significant relief. Pain reported as 8 out of 10 dull radiating down her left leg. She denied bowel or bladder incontinence. Upon evaluation vital signs are stable. Laboratory work-up revealed no leukocytosis stable hemoglobin hematocrit. Potassium 3.4. Stable other electrolytes and renal parameters. Glucose 95. Stable LFT. Albumin 3.8. X-ray of the lumbar spine demonstrated advanced L2-L3 degenerative disc findings. Bilateral posterior probably L for L5 and S2 stabilization hardware with anterior L5-S1 stabilization and interbody spacer T12 superior endplate compression fracture of uncertain chronicity. Patient received analgesic and admitted for intractable back pain patient admitted to medical surgical floor CONSULTANTS: pain specialist Dr. Goldstein [facility] COURSE: [] Patient made to medical surgical floor. Patient started on pain management was advised addressed. Pain specialist consult was requested. Supportive care provided. Fall precaution maintained. 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 MRI of the lumbar spine revealed overall abnormal grossly alignment overall grossly abnormal study were extremely limited due to respiratory motion artifact and severe metal artifact overall alignment was grossly anatomic. It appears to be some degenerative disc and facet disease in the upper to mid lumbar spine spinal stenosis at L2-3 and L3-4. Neural foraminal stenosis also demonstrated. Pain management was addressed pain specialist seen and evaluated patient pain management was addressed with the different modality to provide cumulative effective pain relief. 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 Patient clinically stabilized and was ready for discharge home. Follow-up with her surgeon as scheduled. FINAL DIAGNOSES: Intractable back pain Lumbar DDD Lumbar spondylosis Lumbar radiculopathy Muscle spasm Rheumatoid arthritis DISCHARGE MEDICATIONS: See Medication Reconciliation list. DISCHARGE INSTRUCTIONS: Patient was discharged home. Follow-up with spine surgeon scheduled. I have been assigned to dictate discharge summary for this account. I was not involved in the patient's management. Anyi Rueda NP Nov 19, 2019 16:24
== END 2019-11-18 16:50 | disposition home or self-care (01) | DRG 552 ==
LOC: EDBD 22:05 → EDUNIT# 22:05 → EMR 22:23 → INTOOBSV 11-16 02:55 → 4E 11-16 02:55 → OBSVTOIN 11-16 02:55 → EDBEDREQ 11-16 03:52 → UNDODISIN 11-18 13:05
DX: M51.16 Intervertebral disc disorders with radiculopathy, lumbar region (principal); F11.20 Opioid dependence, uncomplicated; M47.26 Other spondylosis with radiculopathy, lumbar region; I10 Essential (primary) hypertension; M06.9 Rheumatoid arthritis, unspecified; M62.830 Muscle spasm of back; Z98.1 Arthrodesis status
CPT/HCPCS: 36415; 72020; 72158; 80053; 85025; 96372; 96374; 99284; A9585; J8499